=== PATIENT | female | born 1950 | race African-American/Black ===

== ENCOUNTER 2017-08-18 09:07 | Outpatient (CLI) | payer MEDICARE, MEDICAID | END 2017-08-18 09:08 | disposition home or self-care (01) | LOC: BICRAD 09:07 | PROVIDERS: ATTEND Family Medicine | DX: M25.561 Pain in right knee (principal); M17.11 Unilateral primary osteoarthritis, right knee ==

== ENCOUNTER 2017-10-12 09:04 | Outpatient (CLI) | payer MEDICARE, MEDICAID | END 2017-10-12 09:05 | disposition home or self-care (01) | LOC: BICMAMMO 09:04 | PROVIDERS: ATTEND Family Medicine | DX: Z12.31 Encounter for screening mammogram for malignant neoplasm of breast (principal) | CPT/HCPCS: 77063; 77067 ==

== ENCOUNTER 2018-04-24 05:56 | Day surgery (SDC) | payer MEDICARE, MEDICAID ==
[2018-04-23 16:05] VITALS: BMI 39.2
--- NOTE | 2018-04-24 07:01 | HP ---
DATE OF ADMISSION: 04/24/2018 HISTORY OF PRESENT ILLNESS: This is a 67-year-old female who comes in for a colonoscopy for colon ca ncer screening. The patent has no specific GI symptoms. She has no history of abdominal pain or rec calvin bleeding. There is no family history of colon cancer. ALLERGIES: None. SOCIAL HISTORY: The patient does not smoke or drink alcohol. MEDICAL ILLNESSES: 1. Obesity. 2. Hypertension. 3. Hyperlipidemia. 4. Glaucoma. 5. Knee pain. 6. History of heart failure. PHYSICAL EXAMINATION: VITAL SIGNS: Pulse is 70, blood pressure 130/70. HEENT: Conjunctivae clear. CARDIOVASCULAR: First and second heart sounds normal. LUNGS: Clear to auscultation. ABDOMEN: Soft to palpate. No organomegaly. No tenderness. No masses. EXTREMITIES: Reveal no edema. ADMITTING DIAGNOSIS: A 67-year-old female comes in for colonoscopy for colon cancer screening.
--- NOTE | 2018-04-24 09:12 | OP ---
DATE OF PROCEDURE: 04/24/2018 SURGEON: Roman Marrero M.D. OPERATIVE PROCEDURE: Colonoscopy. PREOPERATIVE DIAGNOSIS: This is a 67-year-old female undergoing colonoscopy for col on cancer screening. The patient has no specific GI symptoms. There is no family history of colon c ancer. POSTOPERATIVE DIAGNOSES: 1. Hemorrhoids. 2. Sigmoid diverticular disease. 3. Retained stool in the left colon. PROCEDURE IN DETAIL: The patient was placed on her left lateral position and was given sedation by A nesthesia Department. A rectal exam was done before the scope was advanced into the rectum. No lesi on felt on rectal exam. A [employer]ax video colonoscope was introduced into the rectum and advanced all t he way to the cecum. The prep was reasonably good except for the left colon. The patient had solid stool in the rectal vault and also in the sigmoid colon area. Except for the sigmoid colon area, the prep was actually good. The appendical orifice, ileocecal valve, cecum, no pathology seen. Withdr awal of scope in the cecum, ascending colon, hepatic flexure, no pathology seen. The transverse colo n, splenic flexure, and descending colon, no pathology seen. The sigmoid colon showed scattered dive rticular disease. Some of the diverticula were very wide mouthed. Rectum showed hemorrhoids. DISCHARGE PLANNING: A 67-year-old female who came for a colonoscopy for colon cance r screening. The colonoscopy showed sigmoid diverticulosis and hemorrhoids. DISCHARGE RECOMMENDATIONS: 1. The patient was advised to call me if she develops abdominal pain or hematochezia. 2. High-fiber diet. 3. The patient will not need any more colonoscopy for cancer screening as she will be 77 in 10 years ' time.
[2018-04-24] MEDS ORDERED: PROPOFOL 200 MG/20 ML VIAL ONE (13:07)
[2018-04-24] MEDS ORDERED: Lidocaine 1% PF 5 ML VIAL ONE (13:07)
== END 2018-04-24 08:40 | disposition home or self-care (01) ==
LOC: SDC 05:56
PROVIDERS: ATTEND Internal Medicine Gastroenterology
PROC: 0DJD8ZZ Inspection of Lower Intestinal Tract, Via Natural or Artificial Opening Endoscopic (ICD-10-PCS; principal; 2018-04-24)
DX: Z12.11 Encounter for screening for malignant neoplasm of colon (principal); K57.30 Diverticulosis of large intestine without perforation or abscess without bleeding; K64.9 Unspecified hemorrhoids; E78.5 Hyperlipidemia, unspecified; I11.0 Hypertensive heart disease with heart failure; I50.9 Heart failure, unspecified; E66.9 Obesity, unspecified; Z68.39 Body mass index [BMI] 39.0-39.9, adult; Z79.82 Long term (current) use of aspirin; Z79.899 Other long term (current) drug therapy
CPT/HCPCS: J2001; J2704

== ENCOUNTER 2018-10-15 07:56 | Outpatient (CLI) | payer MEDICARE, MEDICAID ==
--- NOTE | 2018-10-15 08:48 | MMO ---
Bilateral MAMMO Bilat Screen [facility]. CLINICAL HISTORY: Patient is 68 years old and is seen for screening. The patient has no family history of breast cancer. The patient has no personal history of cancer. VIEWS: The views performed were: bilateral craniocaudal with tomosynthesis; bilateral mediolateral oblique with tomosynthesis; and right mediolateral oblique. FILMS COMPARED: The present examination has been compared to prior imaging studies performed at [facility] on 08/02/2013, 09/09/2014, 09/11/2015, 09/20/2016 and 10/12/2017. MAMMOGRAM FINDINGS: There are scattered fibroglandular densities. There are stable benign appearing calcifications seen in both breasts. There are no suspicious masses, suspicious calcifications, or new areas of architectural distortion. IMPRESSION: THERE IS NO MAMMOGRAPHIC EVIDENCE OF MALIGNANCY. A ROUTINE FOLLOW-UP MAMMOGRAM IN 1 YEAR IS RECOMMENDED. THE RESULTS OF THIS EXAM WERE SENT TO THE PATIENT. ACR BI-RADS Category 2 - Benign finding MAMMOGRAPHY NOTE: 1. A negative mammogram report should not delay a biopsy if a dominant of clinically suspicious mass is present. 2. Approximately 10% to 15% of breast cancers are not detected by mammography. 3. Adenosis and dense breasts may obscure an underlying neoplasm.
== END 2018-10-15 07:57 | disposition home or self-care (01) ==
LOC: BICMAMMO 07:56
PROVIDERS: ATTEND Family Medicine
DX: Z12.31 Encounter for screening mammogram for malignant neoplasm of breast (principal)
CPT/HCPCS: 77063; 77067

== ENCOUNTER 2018-10-22 22:45 | Emergency (ER) | payer MEDICARE, MEDICAID | END 2018-10-22 23:02 | disposition E | LOC: ERS 22:45 | DX: I46.9 Cardiac arrest, cause unspecified (principal); I11.0 Hypertensive heart disease with heart failure; I50.9 Heart failure, unspecified | CPT/HCPCS: 31500; 92950; 96374; 96375 ==